=== PATIENT | male | born 1985 | race Caucasian/White ===

== ENCOUNTER → 2022-06-22 | Emergency (ER) | payer OTHER ==
[~2022-06-22] VITALS: Ht 180.3 cm; Wt 95.2 kg
[~2022-06-22] MED LIST: BUSPIRONE HCL15 MG PO; CELEBREX100 MG PO; HYDROXYZINE HCL25 MG PO; REMERON15 MG PO; SERTRALINE HCL50 MG PO; VITAMIN D250 MC1 PO
--- NOTE | 2022-06-24 23:15 | EKG ---
[facility] [address] [facility] [place] [address] Signed Normal sinus rhythm Normal ECG No previous ECGs available Confirmed by Santos Stanley MD () on 06/24/2022 11:15:34 PM Electronically Signed By: SANTOS STANLEY MD 06/24/22 2315 PATIENT NAME: MONI ZHU Electrocardiogram DATE OF : 87 PHYSICIAN: SANTOS STANLEY MD REPORT #: [id number] REPORT IS CONFIDENTIAL AND NOT TO BE RELEASED WITHOUT AUTHORIZATION
--- NOTE | 2022-06-24 23:17 | EKG ---
[facility] [address] [facility] [place] [address] Signed Normal sinus rhythm Prolonged QT Abnormal ECG When compared with ECG of 22-JUN-2022 23:33, QT has lengthened Confirmed by Santos Stanley MD () on 06/24/2022 11:17:38 PM Electronically Signed By: SANTOS STANLEY MD 06/24/22 2317 PATIENT NAME: MONI ZHU Electrocardiogram DATE OF : 87 PHYSICIAN: SANTOS STANLEY MD REPORT #: [id number] REPORT IS CONFIDENTIAL AND NOT TO BE RELEASED WITHOUT AUTHORIZATION
== END ==
LOC: ED 23:26
DX: R55 Syncope and collapse (principal); R00.1 Bradycardia, unspecified; Z79.899 Other long term (current) drug therapy; Z20.822 Contact with and (suspected) exposure to COVID-19
CPT/HCPCS: 36415; 71045; 80053; 83735; 84484; 85025; 93005; 93010; 96361; 96374; 99285-25; J0461; J7030; U0003